=== PATIENT | female | born 1975 | race Caucasian/White ===

== ENCOUNTER 2017-06-20 11:27 | Emergency (ER) | payer BC ==
[~2017-06-20] VITALS: Ht 182.9 cm; Wt 93.2 kg
[~2017-06-20 11:27] MED LIST: ALLEGRA60 MG PO; BCP TD; DECADRON 4MG TAB4 MG PO; FLAGYL500 MG PO; HYDROMORPHONE HC2 MG PO; LEXAPRO 10MG10 MG PO; NUVARING VAG RING; PERCOCET 325 MG1 TA2 PO; SKELAXIN400 MG PO; ZOFRAN 4MG T4 MG/TAB PO
[2017-06-20 11:31] VITALS: BP 139/87; PULSE 62; TEMP 98.9
== END 2017-06-20 12:47 | disposition home or self-care (01) ==
LOC: COL.ER 11:27
DX: S01.111A Laceration without foreign body of right eyelid and periocular area, initial encounter (principal); W55.12XA Struck by horse, initial encounter

== ENCOUNTER → 2018-01-12 | Outpatient (CLI) | payer BC | LOC: MC.RAD 10:40 | DX: Z12.31 Encounter for screening mammogram for malignant neoplasm of breast (principal) ==

== ENCOUNTER → 2019-09-01 | Outpatient (CLI) | payer BC | LOC: MC.RAD 08:45 | DX: Z12.31 Encounter for screening mammogram for malignant neoplasm of breast (principal) ==

== ENCOUNTER → 2019-09-05 | Outpatient (CLI) | payer BC | LOC: MC.RAD 07:30 | DX: N63.20 Unspecified lump in the left breast, unspecified quadrant (principal) ==

== ENCOUNTER → 2019-09-13 | Outpatient (CLI) | payer BC | LOC: MC.RAD 08:00 | DX: D24.2 Benign neoplasm of left breast (principal); Z98.82 Breast implant status ==

== ENCOUNTER 2019-11-10 19:17 | Observation (INO) | payer BC ==
[~2019-11-10] VITALS: Ht 180.3 cm; Wt 90.9 kg
[2019-11-10 20:01] LABS: ALANINE AMINOTRANSFERASE 93 U/L (9-52); ALBUMIN 4.8 gm/dL (3.5-5.0); ALKALINE PHOSPHATASE 53 U/L (50-136); ANION GAP 9 mmol/L (7-16); AST,SGOT 269 U/L (15-37); BILIRUBIN,TOTAL 0.4 mg/dL (0.0-1.0); BLOOD UREA NITROGEN 17 mg/dL (7-17); C-REACTIVE PROTEIN < 0.5 mg/dL (0.0-0.9); CALCIUM 9.6 mg/dL (8.4-10.2); CARBON DIOXIDE 27 mmol/L (22-30); CHLORIDE 103 mmol/L (98-107); CREATININE, serum 0.76 (0.52-1.25); GLUCOSE 115 mg/dL (74-106); LIPASE 96 U/L (23-300); POTASSIUM 3.5 mmol/L (3.4-5.0); SODIUM 138 mmol/L (137-145); TOTAL PROTEIN 7.8 gm/dL (6.4-8.2)
[2019-11-10 20:02] LABS: BASO % 0.4 % (0.0-2.0); EOS # 0.1 (0.0-0.7); EOS % 1.2 % (0-4.0); GRAN # 5.8 (1.4-6.5); GRAN % 58.8 % (42.2-75.2); HEMOGLOBIN 13.8 g/dl (12.5-16.0); LYMPH # 3.1 (1.2-3.4); LYMPH % 31.8 % (20.0-51.0); MEAN CELL VOLUME 90 fl (80.0-100.0); MEAN CORPUSCULAR HEMOGLOBIN 31 pg (27.0-31.0); MEAN CORPUSCULAR HGB CONC 35 g/dl (33.0-37.0); MEAN PLATELET VOLUME 10.6 fl (7.4-10.4); MONO # 0.7 (0.1-0.6); MONO % 7.5 % (1.7-9.3); PLATELET COUNT 230 K/mm3 (130-400); RED BLOOD COUNT 4.47 M/mm3 (4.10-5.30); REDCELL DISTRIBUTION WIDTH-CV 12.5 % (11.5-14.5)
[2019-11-10 20:56] LABS: COLLECTION METHOD CLEAN CATCH
[2019-11-10 21:02] LABS: PH 5 (5-8); SQUAMOUS EPITHELIAL 0-2 /hpf; URINE APPEARANCE Clear; URINE BACTERIA Rare /hpf; URINE BILIRUBIN Negative (NEGATIVE); URINE BLOOD Negative (NEGATIVE); URINE COLOR Straw; URINE GLUCOSE Negative (NEGATIVE); URINE KETONE 1+ (NEGATIVE); URINE LEUKOCYTE ESTERASE Negative (NEGATIVE); URINE NITRATE Negative (NEGATIVE); URINE PROTEIN(semi-quant) Negative (NEGATIVE); URINE RBC 0-2 /hpf; URINE UROBILINOGEN Negative (NEGATIVE)
[2019-11-11 01:00] VITALS: BP 116/61; PULSE 74; TEMP 98.1
--- NOTE | 2019-11-11 01:00 | NUR ---
0100- Patient admitted to room #222 from [facility] after a laparoscopy of right ovarian cyst. Patient was originally seen in ED with c/o of severe abdominal pain. Bedside report received from DON Kam PACU. VSS. Patient rates pain a 1 on a pain scale 0-10. abdominal bandaids CDI. Ice chips given to patient, call light in reach. Patient instructed on hitting call light when bathroom is needed, for assistance with first ambulate after anesthesia. Patient verbalized understanding, nelida's at bedside.
[2019-11-11 05:00] VITALS: BP 118/76; PULSE 79; TEMP 98.2
[2019-11-11 08:00] VITALS: BP 112/59; PULSE 67; TEMP 97.7
[2019-11-11] MEDS ORDERED: MOTRIN 600600 MG/TAB PO (08:24)
[2019-11-11] MEDS ORDERED: PERCOCET 325 MG1 TA2 PO (08:24)
--- NOTE | 2019-11-11 11:05 | NUR ---
1105-Reviewed discharge instructions and scheduled follow up apt with patient. Reviewed education on surgery with patient and wound care. Patient verbalized understanding and denies questions. Proviede with newly perscribed prescriptions. 1254-Ambulatory off unit with this RN to husbands car.
== END 2019-11-11 12:54 | disposition home or self-care (01) ==
LOC: COL.ER 19:17 → SDCO 19:17 → OB 22:41 → EDSTATUS 23:26 → OB 11-11 01:00 → SDCO 11-11 01:00 → OB 11-11 12:54 → SDCO 11-11 12:54 → EDSTATUS 11-14 15:55
PROVIDERS: Emergency Medicine; ADMIT Obstetrics & Gynecology
DX: N83.6 Hematosalpinx (principal); N83.8 Other noninflammatory disorders of ovary, fallopian tube and broad ligament; Z90.710 Acquired absence of both cervix and uterus; Z88.1 Allergy status to other antibiotic agents; Z88.2 Allergy status to sulfonamides
CPT/HCPCS: OP; G0378; J1170; J1885; J2405; J2704; J2710; J3010; J7030; J7120; Q9967

== ENCOUNTER → 2020-11-05 | Outpatient (CLI) | payer BC ==
[~2020-11-05] MED LIST changes: +MOTRIN 600600 MG/TAB PO
== END ==
LOC: MC.RAD 10:36
DX: Z12.31 Encounter for screening mammogram for malignant neoplasm of breast (principal)

== ENCOUNTER → 2022-07-31 | Outpatient (CLI) | payer BC | LOC: MC.RAD 09:30 | DX: Z12.31 Encounter for screening mammogram for malignant neoplasm of breast (principal) ==

== ENCOUNTER → 2024-04-11 | Outpatient (CLI) | payer BC | LOC: MC.RAD 11:32 | DX: Z12.31 Encounter for screening mammogram for malignant neoplasm of breast (principal) ==